=== PATIENT | male | born 1955 | race Caucasian/White ===

== ENCOUNTER → 2018-09-18 | Day surgery (SDC) | payer MEDICARE, OTHER ==
[2018-09-15 12:28] LABS: BASOPHILS # (AUTO) 0.1 (0.0-0.1); BASOPHILS % 0.8 % (0.0-1.0); EOSINOPHILS # (AUTO) 0.3 (0.0-0.4); EOSINOPHILS % 3.4 % (0.0-6.0); HEMATOCRIT 48.1 % (38.2-49.6); HEMOGLOBIN 15.9 g/dL (14.0-18.0); LYMPHOCYTES # (AUTO) 2.4 (1.0-3.2); LYMPHOCYTES % 26.2 % (18.0-39.1); MEAN CORPUSCULAR HEMOGLOBIN 31.5 pg (28-32); MEAN CORPUSCULAR HGB CONC 33.1 g/dL (31-35); MEAN CORPUSCULAR VOLUME 95.4 fL (81-99); MONOCYTES # (AUTO) 0.8 (0.2-0.8); MONOCYTES % 9.1 % (4.4-11.3); NEUTROPHILS # (AUTO) 5.5 (2.1-6.9); NEUTROPHILS % 60.3 % (38.7-80.0); PLATELET COUNT 139 x10e3/uL (140-360); RED BLOOD COUNT 5.04 x10e6/uL (4.3-5.7); RED CELL DISTRIBUTION WIDTH 13.7 % (11.7-14.4)
[2018-09-15 13:06] LABS: ANION GAP 14.1 mmol/L (8-16); BLOOD UREA NITROGEN 19 mg/dL (7-26); BUN/CREATININE RATIO 18 (6-25); CALCIUM 9.2 mg/dL (8.4-10.2); CARBON DIOXIDE 28 mmol/L (22-29); CHLORIDE 97 mmol/L (98-107); CREATININE, SERUM 1.04 mg/dL (0.72-1.25); EST GLOMERULAR FILTRATION RATE > 60 ML/MIN (60-); GLUCOSE 100 mg/dL (74-118); POTASSIUM 4.1 mmol/L (3.5-5.1); SODIUM 135 mmol/L (136-145)
--- NOTE | 2018-09-15 13:25 | Diagnostic Imaging Report ---
EXAMINATION: PA and lateral views of the chest. COMPARISON: None CLINICAL HISTORY: Preoperative exam for prostate procedure DISCUSSION: The lungs are well-inflated. No focal airspace consolidation, pleural effusion, or pneumothorax. Multiple median sternotomy wires and mediastinal surgical clips. Tortuous thoracic aorta with otherwise normal heart size. No overt pulmonary edema. No acute osseous abnormality. Surgical plate and screw construct along the distal right clavicle. IMPRESSION: No acute cardiopulmonary abnormalities. Signed by: Dr. Jayjay Gasca M.D. on 09/15/2018 1:22 PM
[~2018-09-18] MED LIST: ALFUZOSIN HCL10 MG PO; AMPICILLIN SOD IV ONE; BELLADONNA/OPIUM 30 MG SUPP RC ONE; CLONIDINE HCL0.1 MG PO; DEXAMETHASONE SOD PHOS INJ 4 MG/ML VIAL ONE; DILANTIN50 MG PO; FENTANYL CITRATE/PF 100MCG/2 ML INJ ONE; HYDROCHLOROTHIA25 MG PO; IBUPROFEN200 MG PO; IOPAMIDOL 610MG/1ML 300 MG/ML VIAL IV ONE; ISOSORBIDE MONO30 MG PO; KETOROLAC TROMETHAMINE 30 MG/ML VIAL ONE; MAGNESIUM OXID400 MG PO; ONDANSETRON HCL INJ 2MG/ML 2ML 2 MG/ML VIAL ONE; POTASSIUM CITR10 MEQ PO; PRIMIDONE250 MG PO; PROPOFOL IV EMULSION 10 MG/ML 20 ML VIAL ONE; SEVOFLURANE INHAL SOLN 250 ML PEN BTL ONE; SIMVASTATIN80 MG PO; SODIUM CHLORIDE 0.9% IV ONE; ZETIA10 MG PO
--- OUTSIDE RECORDS SUMMARY | 2018-09-18 09:10 | XMS REPORT | Summary of Care ---
Author Author [facility] Organization [facility] Address Unknown Phone Unavailable Encounter JOO Rankin(CARLITOS) [id number] Date(s): 05/07/17 - 05/07/17 [facility] [address] [place] [address]- Discharge Diagnosis: Acute head injury Discharge Diagnosis: Nondisplaced fracture of first metatarsal bone, right foot, initial encounter for closed fracture Discharge Disposition: Home or Self Care Attending Physician: Cesar Mcmanus DO Vital Signs Most recent to 1 2 oldest [Reference Range]: Height 182.88 cm (05/07/17 5:20 PM) Temperature Oral 98.2 DegF 98.2 DegF [96.4-99.1 DegF] (05/07/17 7:50 PM) (05/07/17 5:20 PM) Blood Pressure 126/75 mmHg 137/74 mmHg [90-140/60-90 mmHg] (05/07/17 7:50 PM) (05/07/17 5:20 PM) Respiratory Rate 16 BRMIN 16 BRMIN [14-20 BRMIN] (05/07/17 7:50 PM) (05/07/17 5:20 PM) Peripheral Pulse 65 bpm 67 bpm Rate [60-100 bpm] (05/07/17 7:50 PM) (05/07/17 5:20 PM) Weight 136.364 kg (05/07/17 5:20 PM) Body Mass Index 40.77 m2 (05/07/17 5:20 PM) Problem List Condition Effective Dates Status Health Status Informant CA - Cancer of Resolved prostate(Confirmed) Cellulitis(Confirmed Active ) Heart Resolved attack(Confirmed) HTN - Active Hypertension(Confirm ed) Hyperlipidemia(Confi Active rmed) Hypertension(Confirm Resolved ed) Pneumonia(Confirmed) Resolved Seizure Active disorder(Confirmed) Triple coronary Active bypass(Confirmed) Allergies, Adverse Reactions, Alerts Substance Reaction Severity Status Darvon Active Medications Tylenol with Codeine #3 oral tablet 2 tab, Route: PO, Drug Form: TAB, Dosing Weight 136.364, kg, ONCE, STAT, Start d ate: 05/07/17 17:33:00 CDT, Stop date: 05/07/17 17:33:00 CDT Notes: Do not exceed 4gm/day of acetaminophen. (Same as: Tylenol with Codeine # 3) Start Date: 05/07/17 Stop Date: 05/07/17 Status: Completed Tylenol with Codeine #3 oral tablet 1 - 2 tab, PO, Q4H, PRN Pain, X 3 day, # 15 tab, 0 Refill(s) Start Date: 05/07/17 Stop Date: 05/10/17 Status: Ordered Results No data available for this section Immunizations Given and Recorded Vaccine Date Status Refusal Reason influenza virus vaccine, inactivated 10/27/10 Given Procedures Procedure Date Related Diagnosis Body Site Assess radiation therapy care Bypass Social History Social History Type Response Smoking Status Never smoker; Exposure to Tobacco Smoke None; Cigarette Smoking Last 365 Days No; Reg Smoking Cessation Counseling No Assessment and Plan No data available for this section
--- OUTSIDE RECORDS SUMMARY | 2018-09-18 09:10 | XMS REPORT ---
[facility] Address Unknown Phone Unavailable Care Team Providers Care Principal Trainer Name Role Phone KAYLA DOW Unavailable Unavailable Problems This patient has no known problems. Allergies, Adverse Reactions, Alerts This patient has no known allergies or adverse reactions. Medications This patient has no known medications. Results Test Description Test Time Test Comments Text Results Atomic Results Result Comments CHEST 2 VIEWS 2018-09-15 13:20:00 [place] [address] Patient Name: LILLIAN DOMINGUEZ MR #: [id number] : 1955 Age/Sex: 63/M Req #: [id number] Adm Physician: Ordered by: KAYLA DOW MD Report #: [id number] Location: OR Room/Bed: Procedure: [id number] DX/CHEST 2 VIEWS Exam Date: 09/15/18 Exam Time: 1250 REPORT STATUS: Signed EXAMINATION: PA and lateral views of the chest. FINESSE RISON: None CLINICAL HISTORY: Preoperative exam for prostate procedure DISCUSSION: The lungs are well-inflated. No focal airspace consolidation, pleural effusion, or pneumothorax. Multiple median sternotomy wires and mediastinal surgical clips. Tortuous thoracic aorta with otherwise normal heart size. No overt pulmonary edema. No acute osseous abnormality. Surgical plate and screw construct along the distal right clavicle. IMPRESSION: No acute cardiopulmonary abnormalities. Signed by: Dr. Russ Soriano M.D. on 09/15/2018 1:22 PM Dictated By: RUSS SORIANO MD 21 Transcribed By: MARGOT on 09/15/181321 COPY TO: KAYLA DOW MD
--- OUTSIDE RECORDS SUMMARY | 2018-09-18 09:10 | XMS REPORT | CCD ---
Author Author Auto Generated Organization [facility] Address Unknown Phone Unavailable Care Team Providers Care Surface Hydrologist Name Role Phone PhiliptSu PP MacDonya monahan Jayne CP Allergies, Adverse Reactions, Alerts Substance Reaction Status Darvon Active Problem List Condition Effective Dates Status CA - Cancer of prostate Resolved Cellulitis Active Heart attack Resolved HTN - Hypertension Active Hyperlipidemia Active Hypertension Resolved Pneumonia Resolved Seizure disorder Active Triple coronary bypass Active Medications Medication Instructions Start Date End Date Status Saline Flush 0.9% 5 ml, Route: IVP, Drug Form: INJ, 12/25/2012 12/26/2012 Discontinued Dosing Weight 155.17, kg, Q12H, Start date: 12/25/12 21:00:00, Duration: 30 day, Stop date: 01/24/13 9:00:00 Saline Flush 0.9% 5 ml, Route: IVP, Drug Form: INJ, 12/25/2012 12/26/2012 Discontinued Dosing Weight 155.17, kg, PRN, PRN Line Flush, Start date: 12/25/12 14:58:00, Duration: 30 day, Stop date: 01/24/13 14:57:00 clopidogrel 300 mg, 1 tab, Route: PO, Drug 12/25/2012 12/25/2012 Completed form: TAB, ONCE, Dosing Weight 155.17, kg, Start date: 12/25/12 14:58:00, Stop date: 12/25/12 14:58:00 acetylcysteine oral 600 mg, 3 mL, Route: PO, Drug form: 12/25/2012 12/26/2012 Discontinued solution (mg) SOLN, Q12H, Dosing Weight 155.17, kg, Start date: 12/25/12 21:00:00, Duration: 4 doses or times, Stop date: 12/27/12 9:00:00 diphenhydrAMINE 50 mg, 1 cap, Route: PO, Drug form: 12/25/2012 12/25/2012 Completed CAP, ONCE, Dosing Weight 155.17, kg, Start date: 12/25/12 14:58:00, Stop date: 12/25/12 14:58:00 predniSONE 50 mg, 1 tab, Route: PO, Drug form: 12/25/2012 12/26/2012 Discontinued TAB, TID, Dosing Weight 155.17, kg, Start date: 12/25/12 17:00:00, Duration: 3 doses or times, Stop date: 12/26/12 13:00:00 Saline Flush 0.9% 5 ml, Route: IVP, Drug Form: INJ, 12/25/2012 12/26/2012 Discontinued Dosing Weight 145.455, kg, PRN, PRN Line Flush, Start date: 12/25/12 5:06:00, Duration: 30 day, Stop date: 01/24/13 5:05:00 Saline Flush 0.9% 5 ml, Route: IVP, Drug Form: INJ, 12/25/2012 12/26/2012 Discontinued Dosing Weight 145.455, kg, Q12H, Start date: 12/25/12 9:00:00, Duration: 30 day, Stop date: 01/23/13 21:00:00 aspirin 325 mg 325 mg, 1 tab, Route: PO, Drug 12/25/2012 12/25/2012 Completed tablet form: TAB, ONCE, Dosing Weight 145.455, kg, Start date: 12/25/12 5:06:00, Stop date: 12/25/12 5:06:00 lisinopril 5 mg, 1 tab, Route: PO, Drug form: 12/25/2012 12/26/2012 Discontinued TAB, Daily, Dosing Weight 145.455, kg, Start date: 12/25/12 9:00:00, Duration: 30 day, Stop date: 01/23/13 9:00:00 nitroglycerin SL Tab 0.4 mg, 1 tab, Route: SL, Drug 12/25/2012 12/25/2012 Discontinued form: TAB, Q5Min, Dosing Weight 145.455, kg, PRN Chest Pain, Start date: 12/25/12 5:06:00, Duration: 3 doses or times, Stop date: Limited # of times aspirin 325 mg, Route: PO, Drug form: TAB, 12/25/2012 12/25/2012 Completed ONCE, Dosing Weight 145.455, kg, Priority: STAT, Start date: 12/25/12 1:10:00, Stop date: 12/25/12 1:10:00 Pravachol 40 mg, 2 tab, Route: PO, Drug form: 12/25/2012 12/26/2012 Discontinued TAB, QPM, Dosing Weight 155.17, kg, Start date: 12/25/12 17:00:00, Duration: 30 day, Stop date: 01/23/13 17:00:00 Sodium Chloride 0.9% 1,000 mL, Rate: 75 ml/hr, Infuse 12/25/2012 12/25/2012 Completed IV 1,000 mL over: 13.3 hr, Route: IV, Dosing Weight 145.455 kg, Total Volume: 1,000, Priority: STAT, Start date: 12/25/12 1:09:00, Duration: 1 doses or times, Stop date: 12/25/12 14:26:00 nitroglycerin SL Tab 0.4 mg, 1 tab, Route: SL, Drug 12/25/2012 12/25/2012 Discontinued form: TAB, Q5Min, Dosing Weight 145.455, kg, Start date: 12/25/12 1:10:00, Duration: 30 day, Stop date: 01/24/13 1:05:00 acetaminophen-hydroc 1 tab, Route: PO, Drug Form: TAB, 12/25/2012 12/26/2012 Discontinued odone 325 mg-7.5 mg Q12H, PRN Pain, Start date: oral tablet 12/25/12 19:10:00, Duration: 30 day, Stop date: 01/24/13 19:09:00 Lovenox 40 mg, 0.4 mL, Route: SUB-Q, Drug 12/25/2012 12/25/2012 Discontinued form: INJ, [id number], Dosing Weight 155.17, kg, Start date: 12/25/12 15:00:00, Duration: 30 day, Stop date: 01/23/13 15:00:00 metoprolol extended 50 mg, 1 tab, Route: PO, Drug form: 12/26/2012 12/26/2012 Discontinued release ERTAB, Daily, Start date: 12/26/12 9:00:00, Duration: 30 day, Stop date: 01/24/13 9:00:00 influenza virus 0.5 mL, Route: IM, Drug Form: INJ, 10/27/2010 10/27/2010 Completed vaccine, inactivated Start date: 10/27/10 9:00:00, Stop date: 10/27/10 9:00:00 nitroglycerin 0.4 mg 0.4 mg, 1 tab, Route: SL, Drug 12/25/2012 12/26/2012 Discontinued sublingual tablet form: TAB, Q5Min, PRN Chest Pain, Start date: 12/25/12 4:56:00, Duration: 30 day, Stop date: 01/24/13 4:55:00 atropine 0.5 mg, 5 mL, Route: IVP, Drug 12/25/2012 12/26/2012 Discontinued form: INJ, PRN, PRN Bradycardia, Start date: 12/25/12 4:56:00, Duration: 30 day, Stop date: 01/24/13 4:55:00 clotrimazole topical 1 appl, Route: TOP, Q12H, Drug 12/25/2012 12/26/2012 Discontinued 1% cream form: CRM, Start date: 12/25/12 21:00:00, Duration: 30 day, Stop date: 01/24/13 9:00:00 phenobarbital 50 mg, 12.5 mL, Route: PO, Drug 12/26/2012 12/26/2012 Discontinued form: ELIX, Daily, Dosing Weight 155.17, kg, Start date: 12/26/12 9:00:00, Duration: 30 day, Stop date: 01/24/13 9:00:00 phenytoin 300 mg, 3 cap, Route: PO, Drug 12/25/2012 12/26/2012 Discontinued form: ERCAP, BID, Dosing Weight 155.17, kg, Start date: 12/25/12 21:00:00, Duration: 30 day, Stop date: 01/24/13 9:00:00 Diprolene AF 1 appl, Route: TOP, Q12H, Drug 12/25/2012 12/26/2012 Discontinued form: CRM, Start date: 12/25/12 21:00:00, Duration: 30 day, Stop date: 01/24/13 9:00:00 Immunizations Vaccine Date Status influenza virus vaccine, inactivated 10/27/2010 Auth (Verified) Vital Signs Most recent to oldest [Reference Range]: 1 2 3 Height 182.88 cm (12/25/2012 05:26:00) 182.88 cm (12/25/2012 00:06:00) Temperature Oral [96.4-99.1 DegF] 98.3 DegF (12/26/2012 08:00:00) 98.1 DegF (12/26/2012 04:00:00) 99.4 DegF *HI* (12/26/2012 00:00:00) Systolic Blood Pressure [90-140 mmHg] 128 mmHg (12/26/2012 08:00:00) 126 mmHg (12/26/2012 04:00:00) 131 mmHg (12/26/2012 00:00:00) Diastolic Blood Pressure [60-90 mmHg] 74 mmHg (12/26/2012 08:00:00) 84 mmHg (12/26/2012 04:00:00) 73 mmHg (12/26/2012 00:00:00) Respiratory Rate [14-20 BRMIN] 17 BRMIN (12/26/2012 08:00:00) 18 BRMIN (12/26/2012 04:00:00) 18 BRMIN (12/26/2012 00:00:00) Peripheral Pulse Rate [60-100 bpm] 67 bpm (12/26/2012 08:00:00) 66 bpm (12/26/2012 04:00:00) 68 bpm (12/26/2012 00:00:00) Weight 155.17 kg (12/25/2012 05:26:00) 145.455 kg (12/25/2012 00:06:00) Results URINALYSIS Most recent to oldest [Reference Range]: 1 2 3 UA Turbidity [Clear] Clear (12/25/2012 01:10:00) UA Color [Yellow] Yellow *NA* (12/25/2012 01:10:00) UA pH [5.0-8.0] 5.0 (12/25/2012 01:10:00) UA Spec Grav [<=1.030] 1.025 (12/25/2012 01:10:00) UA Glucose [Negative mg/dL] Negative mg/dL *NA* (12/25/2012 01:10:00) UA Blood [Negative] Negative (12/25/2012 01:10:00) UA Ketones [Negative mg/dL] Negative mg/dL *NA* (12/25/2012 01:10:00) UA Protein [Negative mg/dL] 30 mg/dL *ABN* (12/25/2012 01:10:00) UA Urobilinogen [0.1-1.0 mg/dL] <=1.0 mg/dL *NA* (12/25/2012 01:10:00) UA Bili [Negative] Negative *NA* (12/25/2012 01:10:00) UA Leuk Est [Negative] Negative (12/25/2012 01:10:00) UA Nitrite [Negative] Negative (12/25/2012 01:10:00) UA WBC [0-5 /HPF] 3 /HPF (12/25/2012 01:10:00) UA RBC [0-2 /HPF] 2 /HPF (12/25/2012 01:10:00) UA Sq Epi [Few /LPF] Occasional /LPF *NA* (12/25/2012 01:10:00) UA Hyal Cast [0-2 /LPF] 1 /LPF (12/25/2012 01:10:00) UA Mucus [None Seen /LPF] Many /LPF *ABN* (12/25/2012 01:10:00) CHEMISTRY Most recent to oldest [Reference Range]: 1 2 3 Sodium Lvl [135-145 mEq/L] 141 mEq/L (12/25/2012 15:20:00) 140 mEq/L (12/25/2012 01:40:00) Potassium Lvl [3.5-5.1 mEq/L] 4.0 mEq/L (12/25/2012 15:20:00) 3.6 mEq/L (12/25/2012 01:40:00) Chloride Lvl [95-109 mEq/L] 104 mEq/L (12/25/2012 15:20:00) 104 mEq/L (12/25/2012 01:40:00) CO2 [24-32 mEq/L] 29 mEq/L (12/25/2012:20:00) 31 mEq/L (12/25/2012:40:00) AGAP [10.0-20.0 mEq/L] 12.0 mEq/L (12/25/2012:20:00) 8.6 mEq/L *LOW* (12/25/2012:40:00) Creatinine Lvl [0.5-1.4 mg/dL] 1.1 mg/dL (12/25/2012:20:00) 1.0 mg/dL (12/25/2012:40:00) eGFR 73 mL/min/1.73m2 1 *NA* (12/25/2012:20:00) 82 mL/min/1.73m2 2 *NA* (12/25/201240:00) BUN [7-22 mg/dL] 17 mg/dL (12/25/2012:20:00) 19 mg/dL (12/25/201240:00) B/C Ratio [6-25] 19 (12/25/2012:40:00) Glucose Lvl [70-99 mg/dL] 99 mg/dL 3 (12/25/2012:20:00) 113 mg/dL 4 *HI* (12/25/201240:00) Total Protein [6.4-8.4 g/dL] 7.3 g/dL (12/25/2012:40:00) Albumin Lvl [3.5-5.0 g/dL] 3.4 g/dL *LOW* (12/25/201240:00) Globulin [2.0-4.0 g/dL] 3.9 g/dL (12/25/2012:40:00) A/G Ratio [0.7-1.6] 0.9 (12/25/2012:40:00) Calcium Lvl [8.5-10.5 mg/dL] 8.5 mg/dL (12/25/2012:20:00) 8.7 mg/dL (12/25/2012:40:00) ALT [0-65 unit/L] 43 unit/L (12/25/2012:40:00) AST [0-37 unit/L] 15 unit/L (12/25/2012:40:00) Alk Phos [39-136 unit/L] 81 unit/L (12/25/2012:40:00) Bili Total [0.2-1.3 mg/dL] 0.3 mg/dL (12/25/2012:40:00) Total CK [12-191 unit/L] 79 unit/L (12/25/2012 13:03:00) 81 unit/L (12/25/2012 07:00:00) 86 unit/L (12/25/2012:40:00) CK MB [0.5-3.6 ng/mL] 1.2 ng/mL (12/25/2012 13:03:00) 1.5 ng/mL (12/25/2012 07:00:00) 1.4 ng/mL (12/25/2012:40:00) CK MB Index [0.0-2.5] 1.5 (12/25/2012:03:00) 1.9 (12/25/2012 07:00:00) 1.6 (12/25/2012:40:00) Troponin-I [0.00-0.40 ng/mL] <0.02 ng/mL (12/25/2012:03:00) <0.02 ng/mL (12/25/2012 07:00:00) <0.02 ng/mL (12/25/2012:40:00) BNP [<=100 pg/mL] 22 pg/mL 5 (12/25/2012:40:00) CHD Risk [4.00-7.30] 4.51 (12/25/2012:20:00) Chol [120-200 mg/dL] 167 mg/dL (12/25/2012:20:00) Trig [0-200 mg/dL] 324 mg/dL *HI* (12/25/2012:20:00) HDL [>=35 mg/dL] 37 mg/dL (12/25/2012:20:00) LDL [0-129 mg/dL] 65 mg/dL (12/25/2012:20:00) U Amph Scr [Negative] Negative *NA* (12/25/2012 01:10:00) U Caitlyn Scr [Negative] Positive *ABN* (12/25/2012:10:00) U Benzodia Scr [Negative] Negative *NA* (12/25/2012 01:10:00) U Cocaine Scr [Negative] Negative *NA* (12/25/2012:10:00) U Opiate Scr [Negative] Negative *NA* (12/25/2012:10:00) U Phencyc Scr [Negative] Negative *NA* (12/25/2012:10:00) U Cannab Scr [Negative] Negative *NA* (12/25/2012:10:00) UDS Note See Note 6 (12/25/2012:10:00) Phenytoin Total [10.0-20.0 ug/ml] 5.9 ug/ml *LOW* (12/25/2012 01:40:00) Etoh (%) <.003 % 7 *NA* (12/25/2012 03:28:00) Ethanol Lvl <3 mg/dL 8 *NA* (12/25/2012 03:28:00) 1Result Comment: The eGFR is calculated using the CKD-EPI formula. In most young, healthy individuals the eGFR will be >90 mL/min/1.73m2. The eGFR declines with age. An eGFR of 60-89 may be normal in some populations, particularly the elderly, for whom the CKD-EPI formula has not been extensively validated. Use of the eGFR is not recommended in the following populations: Individuals with unstable creatinine concentrations, including patients and those with serious co-morbid conditions. Patients with extremes in muscle mass or diet. The data above are obtained from the National Kid[employer] Disease Education Program ( NKDEP) which additionally recommends that when the eGFR is used in patients with extremes of body mass index for purposes of drug dosing, the eGFR should be mul tiplied by the estimated BMI. 2Result Comment: The eGFR is calculated using the CKD-EPI formula. In most young, healthy individuals the eGFR will be >90 mL/min/1.73m2. The eGFR declines with age. An eGFR of 60-89 may be normal in some populations, particularly the elderly, for whom the CKD-EPI formula has not been extensively validated. Use of the eGFR is not recommended in the following populations: Individuals with unstable creatinine concentrations, including patients and those with serious co-morbid conditions. Patients with extremes in muscle mass or diet. The data above are obtained from the National Kidney Disease Education Program ( NKDEP) which additionally recommends that when the eGFR is used in patients with extremes of body mass index for purposes of drug dosing, the eGFR should be mul tiplied by the estimated BMI. 3Interpretive Data: Adult reference range values reflect the clinical guidelines of the [place] [employer]. 4Interpretive Data: Adult reference range values reflect the clinical guidelines of the [place] [employer]. 5Interpretive Data: Elevated results are in line with increasing severity of congestive heart failure. Minor elevations between 100 and 300 may be seen with Myocardial Ischemia, Sodium retaining drugs, and compensated/treated heart failure. 6Interpretive Data: Drugs reported as positive have not been confirmed by a second method and should be used for medical purposes only. To order confirmation, contact laboratory. note: Below are cut-off concentrations for all urine drugs of abuse performed in the laboratory. Some drugs listed in the table may not be included in this panel. Description Cut-off concentration Amphetamine 1000 ng/mL Barbiturates 200 ng/mL Benzodiazepines 300 ng/mL Cocaine metabolites 300 ng/mL Opiates 300 ng/mL Phencyclidine 25 ng/mL Propoxyphene 300 ng/mL Marijuana metabolites 50 ng/mL Methadone 300 ng/mL Urine alcohol 20 mg/dL 7Interpretive Data: Negative Range: <0.003% Toxic Range: >0.25% 8Interpretive Data: Negative Range: <3 mg/dL Toxic Range: >250 mg/dL HEMATOLOGY Most recent to oldest [Reference Range]: 1 2 3 WBC [3.7-10.4 K/CMM] 10.2 K/CMM (12/25/2012 15:20:00) 9.4 K/CMM (12/25/2012 07:00:00) 10.6 K/CMM *HI* (12/25/2012 01:40:00) RBC [4.70-6.10 M/CMM] 4.89 M/CMM (12/25/2012 15:20:00) 4.76 M/CMM (12/25/2012 07:00:00) 4.76 M/CMM (12/25/2012:40:00) Hgb [14.0-18.0 g/dL] 15.6 g/dL (12/25/2012 15:20:00) 15.4 g/dL (12/25/2012 07:00:00) 15.3 g/dL (12/25/2012 01:40:00) Hct [42.0-54.0 %] 47.6 % (12/25/2012 15:20:00) 46.7 % (12/25/2012 07:00:00) 46.2 % (12/25/2012:40:00) MCV [80.0-94.0 fL] 97.5 fL *HI* (12/25/2012 15:20:00) 98.0 fL *HI* (12/25/2012 07:00:00) 96.9 fL *HI* (12/25/2012:40:00) MCH [27.0-31.0 pg] 32.0 pg *HI* (12/25/2012:20:00) 32.3 pg *HI* (12/25/2012 07:00:00) 32.1 pg *HI* (12/25/2012 01:40:00) MCHC [32.0-36.0 g/dL] 32.8 g/dL (12/25/2012:20:00) 33.0 g/dL (12/25/2012 07:00:00) 33.1 g/dL (12/25/2012 01:40:00) RDW [11.5-14.5 %] 14.6 % *HI* (12/25/2012:20:00) 14.2 % (12/25/2012 07:00:00) 14.4 % (12/25/2012 01:40:00) Platelet [133-450 K/CMM] 137 K/CMM (12/25/2012 15:20:00) 121 K/CMM *LOW* (12/25/2012 07:00:00) 135 K/CMM (12/25/2012 01:40:00) MPV [7.4-10.4 fL] 9.1 fL (12/25/2012 15:20:00) 9.2 fL (12/25/2012 07:00:00) 9.6 fL (12/25/2012 01:40:00) Segs [45.0-75.0 %] 64.2 % (12/25/2012 15:20:00) 60.9 % (12/25/2012 07:00:00) 65.7 % (12/25/2012 01:40:00) Lymphocytes [20.0-40.0 %] 19.9 % *LOW* (12/25/2012 15:20:00) 25.3 % (12/25/2012 07:00:00) 21.7 % (12/25/2012 01:40:00) Monocytes [2.0-12.0 %] 8.8 % (12/25/2012 15:20:00) 7.9 % (12/25/2012 07:00:00) 8.1 % (12/25/2012 01:40:00) Eosinophils [0.0-4.0 %] 5.7 % *HI* (12/25/2012 15:20:00) 5.2 % *HI* (12/25/2012 07:00:00) 4.2 % *HI* (12/25/2012 01:40:00) Basophils [0.0-1.0 %] 1.4 % *HI* (12/25/2012 15:20:00) 0.7 % (12/25/2012 07:00:00) 0.3 % (12/25/2012 01:40:00) Segs-Bands # [1.5-8.1 K/CMM] 6.6 K/CMM (12/25/2012 15:20:00) 5.7 K/CMM (12/25/2012 07:00:00) 7.0 K/CMM (12/25/2012 01:40:00) Lymphocytes # [1.0-5.5 K/CMM] 2.0 K/CMM (12/25/2012 15:20:00) 2.4 K/CMM (12/25/2012 07:00:00) 2.3 K/CMM (12/25/2012 01:40:00) Monocytes # [0.0-0.8 K/CMM] 0.9 K/CMM *HI* (12/25/2012 15:20:00) 0.7 K/CMM (12/25/2012 07:00:00) 0.9 K/CMM *HI* (12/25/2012 01:40:00) Eosinophils # [0.0-0.5 K/CMM] 0.6 K/CMM *HI* (12/25/2012 15:20:00) 0.5 K/CMM (12/25/2012 07:00:00) 0.4 K/CMM (12/25/2012 01:40:00) Basophils # [0.0-0.2 K/CMM] 0.1 K/CMM (12/25/2012 15:20:00) 0.1 K/CMM (12/25/2012 07:00:00) 0.0 K/CMM (12/25/2012 01:40:00) PT [12.0-14.7 seconds] 12.4 seconds (12/25/2012 15:20:00) 12.7 seconds (12/25/2012 01:40:00) INR [0.85-1.17] 0.90 9 (12/25/2012 15:20:00) 0.93 10 (12/25/2012 01:40:00) PTT [22.9-35.8 seconds] 26.8 seconds 11 (12/25/2012 15:20:00) 26.8 seconds 12 (12/25/2012 01:40:00) 9Interpretive Data: RECOMMENDED RANGES FOR PROTIME INR: 2.0-3.0 for most medical and surgical thromboembolic states. 2.5-3.5 for artificial heart valves and recurrent embolism. INR SHOULD BE USED ONLY FOR PATIENTS ON STABLE ANTICOAGULANT THERAPY. 10Interpretive Data: RECOMMENDED RANGES FOR PROTIME INR: 2.0-3.0 for most medical and surgical thromboembolic states. 2.5-3.5 for artificial heart valves and recurrent embolism. INR SHOULD BE USED ONLY FOR PATIENTS ON STABLE ANTICOAGULANT THERAPY. 11Interpretive Data: Heparin Therapeutic Range: 57 - 92 Seconds 12Interpretive Data: Heparin Therapeutic Range: 57 - 92 Seconds Procedures Procedures Date Related Diagnosis Assess radiation therapy care Bypass
--- OUTSIDE RECORDS SUMMARY | 2018-09-18 09:10 | XMS REPORT | Continuity of Care Document ---
Author Author [facility] Interface Address Unknown Phone Unavailable Problems Problem Status Onset Date Classification Date Reported Comments Source UNSTABLE ANGINA, HYPOKALEMIA Active 04/05/2018 [facility] SOB Active 04/05/2018 [facility] Discharge Diagnosis: Acute head injury 05/07/2017 05/10/2017 [facility] Discharge Diagnosis: Nondisplaced fracture of first metatarsal bone, right foot, initial encounter for closed fracture 05/07/2017 05/10/2017 [facility] FALL Active 05/07/2017 [facility] CHEST PAIN Active 12/24/2012 [facility] CA - Cancer of prostate Resolved Problem 05/10/2017 [facility] Cellulitis Active Problem 05/10/2017 [facility] Heart attack Resolved Problem 05/10/2017 [facility] HTN - Hypertension Active Problem 05/10/2017 [facility] Hyperlipidemia Active Problem 05/10/2017 [facility] Hypertension Resolved Problem 05/10/2017 [facility] Pneumonia Resolved Problem 05/10/2017 [facility] Seizure disorder Active Problem 05/10/2017 [facility] Triple coronary bypass Active Problem 05/10/2017 [facility] CA - Cancer of prostate Resolved Problem 12/28/2012 [facility] Cellulitis Active Problem 12/28/2012 [facility] Heart attack Resolved Problem 12/28/2012 [facility] HTN - Hypertension Active Problem 12/28/2012 [facility] Hyperlipidemia Active Problem 12/28/2012 [facility] Hypertension Resolved Problem 12/28/2012 [facility] Pneumonia Resolved Problem 12/28/2012 [facility] Seizure disorder Active Problem 12/28/2012 [facility] Triple coronary bypass Active Problem 12/28/2012 [facility] CHEST PAIN NOS Active [facility] UNSTABLE ANGINA Active [facility] HYPOKALEMIA Active [facility] Medications Medication Details Route Status Patient Instructions Ordering Provider Order Date Source Acetaminophen 300 MG / Codeine Phosphate 30 MG Oral Tablet [Tylenol with Codeine #3] 1 - 2 tab, PO, Q4H, PRN Pain, X 3 day, # 15 tab, 0 Refill(s) Active 05/08/2017 [facility] Acetaminophen 300 MG / Codeine Phosphate 30 MG Oral Tablet [Tylenol with Codeine #3] 2 tab, Route: PO, Drug Form: TAB, Dosing Weight 136.364, kg, ONCE, STAT, Start date: 05/07/17 17:33:00 CDT, Stop date: 05/07/17 17:33:00 CDTNotes: Do not exceed 4gm/day of acetaminophen. (Same as: Tylenol with Codeine # 3) Inactive 05/07/2017 [facility] metoprolol extended release 50 mg, 1 tab, Route: PO, Drug form: ERTAB, Daily, Start date: 12/26/12 9:00:00, Duration: 30 day, Stop date: 01/24/13 9:00:00 PO No Longer Active [place] 12/26/2012 [facility] phenobarbital 50 mg, 12.5 mL, Route: PO, Drug form: ELIX, Daily, Dosing Weight 155.17, kg, Start date: 12/26/12 9:00:00, Duration: 30 day, Stop date: 01/24/13 9:00:00 PO No Longer Active [facility] 12/26/2012 [facility] Saline Flush 0.9% 5 ml, Route: IVP, Drug Form: INJ, Dosing Weight 155.17, kg, Q12H, Start date: 12/25/12 21:00:00, Duration: 30 day, Stop date: 01/24/13 9:00:00 IVP No Longer Active [facility] 12/26/2012 [facility] acetylcysteine oral solution (mg) 600 mg, 3 mL, Route: PO, Drug form: SOLN, Q12H, Dosing Weight 155.17, kg, Start date: 12/25/12 21:00:00, Duration: 4 doses or times, Stop date: 12/27/12 9:00:00 PO No Longer Active [place] 12/26/2012 [facility] clotrimazole topical 1% cream 1 appl, Route: TOP, Q12H, Drug form: CRM, Start date: 12/25/12 21:00:00, Duration: 30 day, Stop date: 01/24/13 9:00:00 TOP No Longer Active [place] 12/26/2012 [facility] phenytoin 300 mg, 3 cap, Route: PO, Drug form: ERCAP, BID, Dosing Weight 155.17, kg, Start date: 12/25/12 21:00:00, Duration: 30 day, Stop date: 01/24/13 9:00:00 PO No Longer Active [place] 12/26/2012 [facility] Diprolene AF 1 appl, Route: TOP, Q12H, Drug form: CRM, Start date: 12/25/12 21:00:00, Duration: 30 day, Stop date: 01/24/13 9:00:00 TOP No Longer Active [place] 12/26/2012 [facility] acetaminophen-hydrocodone 325 mg-7.5 mg oral tablet 1 tab, Route: PO, Drug Form: TAB, Q12H, PRN Pain, Start date: 12/25/12 19:10:00, Duration: 30 day, Stop date: 01/24/13 19:09:00 PO No Longer Active Mac 12/26/2012 [facility] predniSONE 50 mg, 1 tab, Route: PO, Drug form: TAB, TID, Dosing Weight 155.17, kg, Start date: 12/25/12 17:00:00, Duration: 3 doses or times, Stop date: 12/26/12 13:00:00 PO No Longer Active Mac 12/25/2012 [facility] Pravachol 40 mg, 2 tab, Route: PO, Drug form: TAB, QPM, Dosing Weight 155.17, kg, Start date: 12/25/12 17:00:00, Duration: 30 day, Stop date: 01/23/13 17:00:00 PO No Longer Active [place] 12/25/2012 [facility] Lovenox 40 mg, 0.4 mL, Route: SUB-Q, Drug form: INJ, [id number], Dosing Weight 155.17, kg, Start date: 12/25/12 15:00:00, Duration: 30 day, Stop date: 01/23/13 15:00:00 SUB-Q No Longer Active Mac 12/25/2012 [facility] Saline Flush 0.9% 5 ml, Route: IVP, Drug Form: INJ, Dosing Weight 155.17, kg, PRN, PRN Line Flush, Start date: 12/25/12 14:58:00, Duration: 30 day, Stop date: 01/24/13 14:57:00 IVP No Longer Active Mac 12/25/2012 [facility] clopidogrel 300 mg, 1 tab, Route: PO, Drug form: TAB, ONCE, Dosing Weight 155.17, kg, Start date: 12/25/12 14:58:00, Stop date: 12/25/12 14:58:00 PO No Longer Active [place] 12/25/2012 [facility] diphenhydrAMINE 50 mg, 1 cap, Route: PO, Drug form: CAP, ONCE, Dosing Weight 155.17, kg, Start date: 12/25/12 14:58:00, Stop date: 12/25/12 14:58:00 PO No Longer Active [place] 12/25/2012 [facility] Saline Flush 0.9% 5 ml, Route: IVP, Drug Form: INJ, Dosing Weight 145.455, kg, Q12H, Start date: 12/25/12 9:00:00, Duration: 30 day, Stop date: 01/23/13 21:00:00 IVP No Longer Active Mac 12/25/2012 [facility] lisinopril 5 mg, 1 tab, Route: PO, Drug form: TAB, Daily, Dosing Weight 145.455, kg, Start date: 12/25/12 9:00:00, Duration: 30 day, Stop date: 01/23/13 9:00:00 PO No Longer Active Mac 12/25/2012 [facility] Saline Flush 0.9% 5 ml, Route: IVP, Drug Form: INJ, Dosing Weight 145.455, kg, PRN, PRN Line Flush, Start date: 12/25/12 5:06:00, Duration: 30 day, Stop date: 01/24/13 5:05:00 IVP No Longer Active [place] 12/25/2012 [facility] aspirin 325 mg tablet 325 mg, 1 tab, Route: PO, Drug form: TAB, ONCE, Dosing Weight 145.455, kg, Start date: 12/25/12 5:06:00, Stop date: 12/25/12 5:06:00 PO No Longer Active Mac 12/25/2012 [facility] nitroglycerin SL Tab 0.4 mg, 1 tab, Route: SL, Drug form: TAB, Q5Min, Dosing Weight 145.455, kg, PRN Chest Pain, Start date: 12/25/12 5:06:00, Duration: 3 doses or times, Stop date: Limited # of times SL No Longer Active Mac 12/25/2012 [facility] nitroglycerin 0.4 mg sublingual tablet 0.4 mg, 1 tab, Route: SL, Drug form: TAB, Q5Min, PRN Chest Pain, Start date: 12/25/12 4:56:00, Duration: 30 day, Stop date: 01/24/13 4:55:00 SL No Longer Active Mac 12/25/2012 [facility] atropine 0.5 mg, 5 mL, Route: IVP, Drug form: INJ, PRN, PRN Bradycardia, Start date: 12/25/12 4:56:00, Duration: 30 day, Stop date: 01/24/13 4:55:00 IVP No Longer Active Mac 12/25/2012 [facility] aspirin 325 mg, Route: PO, Drug form: TAB, ONCE, Dosing Weight 145.455, kg, Priority: STAT, Start date: 12/25/12 1:10:00, Stop date: 12/25/12 1:10:00 PO No Longer Active [place] 12/25/2012 [facility] nitroglycerin SL Tab 0.4 mg, 1 tab, Route: SL, Drug form: TAB, Q5Min, Dosing Weight 145.455, kg, Start date: 12/25/12 1:10:00, Duration: 30 day, Stop date: 01/24/13 1:05:00 SL No Longer Active [place] 12/25/2012 [facility] Sodium Chloride 0.9% IV 1,000 mL 1,000 mL, Rate: 75 ml/hr, Infuse over: 13.3 hr, Route: IV, Dosing Weight 145.455 kg, Total Volume: 1,000, Priority: STAT, Start date: 12/25/12 1:09:00, Duration: 1 doses or times, Stop date: 12/25/12 14:26:00 IV No Longer Active [place] 12/25/2012 [facility] influenza virus vaccine, inactivated 0.5 mL, Route: IM, Drug Form: INJ, Start date: 03/26/11 9:00:00, Stop date: 10/27/10 9:00:00 IM No Longer Active SYSTEM 10/27/2010 [facility] Allergies, Adverse Reactions, Alerts Substance Category Reaction Severity Reaction type Status Date Reported Comments Source [place] drug allergy Allergy Active [facility] Immunizations Immunization Date Given Site Status Last Updated Comments Source influenza virus vaccine, inactivated 10/27/2010 Left deltoid completed [facility] influenza virus vaccine, inactivated 10/27/2010 completed [facility] Results Order Name Results Value Reference Range Date Interpretation Comments Source Cardiac SPECT multi studies NM Cardiac SPECT multi studies NM Nuclear gated myocardial perfusion scan performed as per protocol at nuclear medicine lab at [facility]. Lexiscan injected 0.4 mg intravenously stress agent. Cardiolite injected the 29.2 mCi for resting protocol 11.9 mCi for stress protocol. Impression: Left ventricular ejection fraction 50% no evidence of ischemia noted. Mild anterior wall scar noted. Mild anterior wall scar no ischemia. Patient known patient coronary artery bypass surgery done in the past. 04/05/2018 - - Read by: Donya Watts MD Dictated Date/time: 04/06/18 13:01 Electronically Signed by: Donya Watts MD 04/06/18 13:05 FINAL REPORT [facility] Chest 1view DX Chest 1view DX Portable chest: Median sternotomy wires are noted. The cardiac silhouette and pulmonary vasculature are within normal limits. The lungs and pleural spaces are clear. There are no acute osseous abnormalities. A right clavicular sideplate and screws is noted. There is no significant change compared to 12/25/2012. IMPRESSION: No acute radiographic abnormalities of the chest. [id number] 04/05/2018 - - Read by: Jayjay Bonilla MD Dictated Date/time: 04/05/18 08:19 Electronically Signed by: Jayjay Bonilla MD 04/05/18 08:20 FINAL REPORT [facility] Brain wo contrast CT Brain wo contrast CT Images and report reviewed, concur. Brain wo contrast CT 05/07/2017 5:23 PM CDT Ordering Physician: Ez Eric CLINICAL HISTORY: dlp: 1104.57; LR - fall, head injury; COMPARISON: CT head April 2009 TECHNIQUE: Axial images were obtained from the foramen magnum to the vertex without the use of intravenous contrast on a multidetector CT. Coronal and sagittal reformations were created. FINDINGS: INTRACRANIAL VAULT: No acute intracranial hemorrhage or secondary signs of increased intracranial pressure are present. No large territorial ischemic infarction is present. Old small lacunar infarction is noted in the right caudate head. Ventricles, cisterns, and sulci are normal. No intracranial mass or midline shift is present. Intracranial atherosclerotic calcific disease is present. ORBITS, MASTOIDS AND PARANASAL SINUSES: Visualized orbits are normal. Sinuses and air cells are clear. CALVARIUM: Calvarium is intact. IMPRESSION: No acute abnormality of the brain. Old small lacunar infarction in the right caudate head. SL: MAYCOL 05/07/2017 - - Read by: Alejandrina Ta MD Dictated Date/time: 05/07/17 19:46 Electronically Signed by: Alejandrina Ta MD 05/07/17 19:49 FINAL REPORT - - Read by: Sharmaine Spann MD Dictated Date/time: 05/07/17 19:32 Electronically Signed by: Sharmaine Spann MD 05/07/17 19:36 FINAL REPORT [facility] Spine cervical wo contrast CT Spine cervical wo contrast CT Spine cervical wo contrast CT CLINICAL HX: dlp: 1012.70; LR - fall, head injury neck pain; COMPARISON: none TECHNIQUE: Contiguous transaxial 2.5 mm images were obtained through the cervical spine. Images were reformatted in sagittal and coronal projections. FINDINGS: BONES: There is no evidence for fracture or subluxation. The alignment on the sagittal and coronal reformations is within normal limits. There is mild to moderate multilevel spondylosis, facet arthrosis and degenerative disc disease noted in the cervical spine. Mild foraminal stenosis is present at various levels. No significant central canal narrowing is noted. NECK SOFT TISSUES: The prevertebral soft tissues are within normal limits. Airway and lung apices: Visualized portion of the lung apices and airway are clear. IMPRESSION: No significant acute abnormality is noted on the cervical spine CT. SL: MORGAN 05/07/2017 - - Read by: Mack Pepper MD Dictated Date/time: 05/07/17 19:24 Electronically Signed by: Mack Pepper MD 05/07/17 19:28 FINAL REPORT [facility] Hand 3 views Bilateral DX Hand 3 views Bilateral DX EXAM: XR BILATERAL HANDS, 3 VIEWS DATE: 05/07/2017 5:22 PM CDT INDICATION: Pain Post Trauma. COMPARISON: None Available. TECHNIQUE: Frontal, oblique, and lateral views of the bilateral hands were obtained. FINDINGS: The bones are diffusely osteopenic. No acute fracture or malalignment is identified. Degenerative changes of the interphalangeal joints are noted bilaterally. In addition, moderate degenerative changes of the first carpometacarpal joint on the left are visualized. Punctate radiopaque densities are noted adjacent to the left 2nd distal interphalangeal joint as well as adjacent to the distal left ulna. IMPRESSION: No acute bony abnormality of the hands. SL: [id number] 05/07/2017 - - Read by: Jose Antonio Madera MD Dictated Date/time: 05/07/17 19:04 Electronically Signed by: Jose Antonio Madera MD 05/07/17 19:06 FINAL REPORT [facility] Elbow 3 views DX Elbow 3 views DX EXAM: XR LEFT ELBOW, 3 VIEWS DATE: 05/07/2017 5:22 PM CDT INDICATION: Left elbow pain. COMPARISON: None Available. TECHNIQUE: AP, oblique, and lateral views of the left elbow were obtained. FINDINGS: No fracture or malalignment is present. The soft tissues are within normal limits. No radiopaque foreign bodies are identified. IMPRESSION: No acute bony abnormality of the left elbow. SL: [id number] 05/07/2017 - - Read by: Jose Antonio Madera MD Dictated Date/time: 05/07/17 19:06 Electronically Signed by: Jose Antonio Madera MD 05/07/17 19:07 FINAL REPORT [facility] Knee 3 Views Bilateral DX Knee 3 Views Bilateral DX Knee 3 Views Bilateral DX CLINICAL HISTORY: - r/o fx FINDINGS/IMPRESSION: 3 views of the right knee and 3 views of the left knee are submitted for review. There is no evidence for fracture or subluxation. No joint effusion is noted. No significant soft tissue abnormality is noted. Moderate tricompartmental degenerative changes present at both knees. The visualized bones demonstrate mild generalized osteopenia.. SL: [id number] 05/07/2017 - - Read by: Mack Pepper MD Dictated Date/time: 05/07/17 18:55 Electronically Signed by: Mack Pepper MD 05/07/17 18:56 FINAL REPORT [facility] Ankle 3 views DX Ankle 3 views DX Ankle 3 views DX CLINICAL HISTORY: - r/o fx FINDINGS/IMPRESSION: 3 views of the right ankle are submitted for review. There is no evidence for fracture or subluxation. Probable accessory ossicle along the inferior margin of the lateral malleolus. Mild soft tissue swelling is present at the ankle bilaterally. No radiopaque foreign body is visualized. Joint spaces are well maintained without any significant degenerative change. The visualized bones demonstrate normal radiodensity. SL: [id number] 05/07/2017 - - Read by: Mack Pepper MD Dictated Date/time: 05/07/17 18:53 Electronically Signed by: Mack Pepper MD 05/07/17 18:54 FINAL REPORT [facility] Foot series DX Foot series DX EXAM: XR RIGHT FOOT, 3 VIEWS DATE: 05/07/2017 5:22 PM CDT INDICATION: Right foot pain. COMPARISON: None Available. TECHNIQUE: Frontal, oblique, and lateral views of the right foot were obtained. FINDINGS: There is an obliquely oriented fracture of the 1st proximal phalanx with extension into the metatarsophalangeal joint. Degenerative changes of the midfoot and tibiotalar joint are visualized. Enthesopathy changes of the calcaneus are present. Overlying soft tissue swelling is identified. IMPRESSION: Obliquely oriented, nondisplaced fracture of the 1st proximal phalanx with extension into the metatarsophalangeal joint. SL: [id number] 05/07/2017 - - Read by: Jose Antonio Madera MD Dictated Date/time: 05/07/17 19:03 Electronically Signed by: Jose Antonio Madera MD 05/07/17 19:04 FINAL REPORT [facility] CHEMISTRY AGAP 12.0 meq/L 10.0 - 20.0 12/25/2012 Normal [facility] CHEMISTRY Chloride Lvl 104 meq/L 95 - 109 12/25/2012 Normal [facility] CHEMISTRY Sodium Lvl 141 meq/L 135 - 145 12/25/2012 Normal [facility] CHEMISTRY Potassium Lvl 4.0 meq/L 3.5 - 5.1 12/25/2012 Normal [facility] CHEMISTRY eGFR 73 mL/min/1.73m2 12/25/2012 NA 1Result Comment: The eGFR is calculated using [...] from the National Kidney Disease Education Program (NKDEP) which additionally recommends that when the eGFR is used in patients with extremes of body mass index for purposes of drug dosing, the eGFR should be multiplied by the estimated BMI. [facility] CHEMISTRY CO2 29 meq/L 24 - 32 12/25/2012 Normal [facility] CHEMISTRY Calcium Lvl 8.5 mg/dL 8.5 - 10.5 12/25/2012 Normal [facility] CHEMISTRY Creatinine Lvl 1.1 mg/dL 0.5 - 1.4 12/25/2012 Normal [facility] CHEMISTRY Glucose Lvl 99 mg/dL 70 - 99 12/25/2012 Normal 3Interpretive Data: Adult reference range values reflect the clinical guidelines of the [place] [employer]. [facility] CHEMISTRY BUN 17 mg/dL 7 - 22 12/25/2012 Normal [facility] CHEMISTRY LDL 65 mg/dL 0 - 129 12/25/2012 Normal [facility] CHEMISTRY Trig 324 mg/dL 0 - 200 12/25/2012 [facility] CHEMISTRY HDL 37 mg/dL >=35 12/25/2012 Normal [facility] CHEMISTRY Chol 167 mg/dL 120 - 200 12/25/2012 Normal [facility] CHEMISTRY CHD Risk 4.51 4.00 - 7.30 12/25/2012 Normal [facility] HEMATOLOGY Eosinophils 5.7 % 0.0 - 4.0 12/25/2012 [facility] HEMATOLOGY Monocytes 8.8 % 2.0 - 12.0 12/25/2012 Normal [facility] HEMATOLOGY Lymphocytes 19.9 % 20.0 - 40.0 12/25/2012 LOW [facility] HEMATOLOGY Segs 64.2 % 45.0 - 75.0 12/25/2012 Normal [facility] HEMATOLOGY Lymphocytes # 2.0 K/CMM 1.0 - 5.5 12/25/2012 Normal [facility] HEMATOLOGY Monocytes # 0.9 K/CMM 0.0 - 0.8 12/25/2012 [facility] HEMATOLOGY Segs-Bands # 6.6 K/CMM 1.5 - 8.1 12/25/2012 Normal [facility] HEMATOLOGY Basophils 1.4 % 0.0 - 1.0 12/25/2012 [facility] HEMATOLOGY Basophils # 0.1 K/CMM 0.0 - 0.2 12/25/2012 Normal [facility] HEMATOLOGY Eosinophils # 0.6 K/CMM 0.0 - 0.5 12/25/2012 [facility] HEMATOLOGY MPV 9.1 fL 7.4 - 10.4 12/25/2012 Normal [facility] HEMATOLOGY Platelet 137 K/CMM 133 - 450 12/25/2012 Normal [facility] HEMATOLOGY MCH 32.0 pg 27.0 - 31.0 12/25/2012 [facility] HEMATOLOGY RDW 14.6 % 11.5 - 14.5 12/25/2012 [facility] HEMATOLOGY MCHC 32.8 g/dL 32.0 - 36.0 12/25/2012 Normal [facility] HEMATOLOGY WBC 10.2 K/CMM 3.7 - 10.4 12/25/2012 Normal [facility] Hgb 15.6 g/dL 14.0 - 18.0 12/25/2012 Normal [facility] RBC 4.89 M/CMM 4.70 - 6.10 12/25/2012 Normal [facility] HEMATOLOGY MCV 97.5 fL 80.0 - 94.0 12/25/2012 [facility] HEMATOLOGY Hct 47.6 % 42.0 - 54.0 12/25/2012 Normal [facility] HEMATOLOGY PT 12.4 s 12.0 - 14.7 12/25/2012 Normal [facility] PTT 26.8 s 22.9 - 35.8 12/25/2012 Normal 11Interpretive Data: Heparin Therapeutic Range: 57 - 92 Seconds [facility] HEMATOLOGY INR 0.90 0.85 - 1.17 12/25/2012 Normal 9Interpretive Data: RECOMMENDED RANGES FOR PROTIME INR: 2.0-3.0 for most medical and surgical thromboembolic states. 2.5-3.5 for artificial heart valves and recurrent embolism. INR SHOULD BE USED ONLY FOR PATIENTS ON STABLE ANTICOAGULANT THERAPY. [facility] CHEMISTRY CK MB Index 1.5 0.0 - 2.5 12/25/2012 Normal [facility] CHEMISTRY CK MB 1.2 ng/mL 0.5 - 3.6 12/25/2012 Normal [facility] CHEMISTRY Total CK 79 unit/L 12 - 191 12/25/2012 Normal [facility] CHEMISTRY Troponin-I null 0.00 - 0.40 12/25/2012 Normal [facility] CHEMISTRY Total CK 81 unit/L 12 - 191 12/25/2012 Normal [facility] CHEMISTRY Troponin-I null 0.00 - 0.40 12/25/2012 Normal [facility] CHEMISTRY CK MB 1.5 ng/mL 0.5 - 3.6 12/25/2012 Normal [facility] CHEMISTRY CK MB Index 1.9 0.0 - 2.5 12/25/2012 Normal [facility] HEMATOLOGY MCH 32.3 pg 27.0 - 31.0 12/25/2012 HI [facility] HEMATOLOGY MCV 98.0 fL 80.0 - 94.0 12/25/2012 [facility] HEMATOLOGY RBC 4.76 M/CMM 4.70 - 6.10 12/25/2012 Normal [facility] HEMATOLOGY Hgb 15.4 g/dL 14.0 - 18.0 12/25/2012 Normal [facility] HEMATOLOGY Hct 46.7 % 42.0 - 54.0 12/25/2012 Normal [facility] HEMATOLOGY Platelet 121 K/CMM 133 - 450 12/25/2012 LOW [facility] HEMATOLOGY WBC 9.4 K/CMM 3.7 - 10.4 12/25/2012 Normal [facility] HEMATOLOGY MPV 9.2 fL 7.4 - 10.4 12/25/2012 Normal [facility] HEMATOLOGY MCHC 33.0 g/dL 32.0 - 36.0 12/25/2012 Normal [facility] HEMATOLOGY RDW 14.2 % 11.5 - 14.5 12/25/2012 Normal [facility] HEMATOLOGY Basophils # 0.1 K/CMM 0.0 - 0.2 12/25/2012 Normal [facility] HEMATOLOGY Monocytes # 0.7 K/CMM 0.0 - 0.8 12/25/2012 Normal [facility] HEMATOLOGY Lymphocytes # 2.4 K/CMM 1.0 - 5.5 12/25/2012 Normal [facility] HEMATOLOGY Eosinophils # 0.5 K/CMM 0.0 - 0.5 12/25/2012 Normal [facility] HEMATOLOGY Segs-Bands # 5.7 K/CMM 1.5 - 8.1 12/25/2012 Normal [facility] HEMATOLOGY Basophils 0.7 % 0.0 - 1.0 12/25/2012 Normal [facility] HEMATOLOGY Monocytes 7.9 % 2.0 - 12.0 12/25/2012 Normal [facility] HEMATOLOGY Segs 60.9 % 45.0 - 75.0 12/25/2012 Normal [facility] HEMATOLOGY Eosinophils 5.2 % 0.0 - 4.0 12/25/2012 HI [facility] HEMATOLOGY Lymphocytes 25.3 % 20.0 - 40.0 12/25/2012 Normal [facility] CHEMISTRY Etoh (%) null 12/25/2012 NA 7Interpretive Data: Negative Range: <0.003% Toxic Range: >0.25% [facility] CHEMISTRY Ethanol Lvl null 12/25/2012 NA 8Interpretive Data: Negative Range: <3 mg/dL Toxic Range: >250 mg/dL [facility] CHEMISTRY Troponin-I null 0.00 - 0.40 12/25/2012 Normal [facility] CHEMISTRY Phenytoin Total 5.9 ug/ml 10.0 - 20.0 12/25/2012 LOW [facility] CHEMISTRY CK MB 1.4 ng/mL 0.5 - 3.6 12/25/2012 Normal [facility] CHEMISTRY Total CK 86 unit/L 12 - 191 12/25/2012 Normal [facility] CHEMISTRY BNP 22 pg/mL <=100 12/25/2012 Normal 5Interpretive Data: Elevated results are in line with increasing severity of congestive heart failure. Minor elevations between 100 and 300 may be seen with Myocardial Ischemia, Sodium retaining drugs, and compensated/treated heart failure. [facility] CHEMISTRY eGFR 82 mL/min/1.73m2 12/25/2012 NA 2Result Comment: The eGFR is calculated using [...] from the National Kidney Disease Education Program (NKDEP) which additionally recommends that when the eGFR is used in patients with extremes of body mass index for purposes of drug dosing, the eGFR should be multiplied by the estimated BMI. [facility] CHEMISTRY AGAP 8.6 meq/L 10.0 - 20.0 12/25/2012 LOW [facility] CHEMISTRY AST 15 unit/L 0 - 37 12/25/2012 Normal [facility] CHEMISTRY Globulin 3.9 g/dL 2.0 - 4.0 12/25/2012 Normal [facility] CHEMISTRY A/G Ratio 0.9 0.7 - 1.6 12/25/2012 Normal [facility] CHEMISTRY B/C Ratio 19 6 - 25 12/25/2012 Normal [facility] CHEMISTRY Creatinine Lvl 1.0 mg/dL 0.5 - 1.4 12/25/2012 Normal [facility] CHEMISTRY BUN 19 mg/dL 7 - 22 12/25/2012 Normal [facility] CHEMISTRY Total Protein 7.3 g/dL 6.4 - 8.4 12/25/2012 Normal [facility] CHEMISTRY Albumin Lvl 3.4 g/dL 3.5 - 5.0 12/25/2012 LOW [facility] CHEMISTRY CO2 31 meq/L 24 - 32 12/25/2012 Normal [facility] CHEMISTRY Bili Total 0.3 mg/dL 0.2 - 1.3 12/25/2012 Normal [facility] CHEMISTRY Calcium Lvl 8.7 mg/dL 8.5 - 10.5 12/25/2012 Normal [facility] CHEMISTRY Alk Phos 81 unit/L 39 - 136 12/25/2012 Normal [facility] CHEMISTRY ALT 43 unit/L 0 - 65 12/25/2012 Normal [facility] CHEMISTRY Glucose Lvl 113 mg/dL 70 - 99 12/25/2012 HI 4Interpretive Data: Adult reference range values reflect the clinical guidelines of the [place] [employer]. [facility] CHEMISTRY Potassium Lvl 3.6 meq/L 3.5 - 5.1 12/25/2012 Normal [facility] CHEMISTRY Chloride Lvl 104 meq/L 95 - 109 12/25/2012 Normal [facility] CHEMISTRY Sodium Lvl 140 meq/L 135 - 145 12/25/2012 Normal [facility] CHEMISTRY CK MB Index 1.6 0.0 - 2.5 12/25/2012 Normal [facility] HEMATOLOGY INR 0.93 0.85 - 1.17 12/25/2012 Normal 10Interpretive Data: RECOMMENDED RANGES FOR PROTIME INR: 2.0-3.0 for most medical and surgical thromboembolic states. 2.5-3.5 for artificial heart valves and recurrent embolism. INR SHOULD BE USED ONLY FOR PATIENTS ON STABLE ANTICOAGULANT THERAPY. [facility] HEMATOLOGY PT 12.7 s 12.0 - 14.7 12/25/2012 Normal [facility] HEMATOLOGY WBC 10.6 K/CMM 3.7 - 10.4 12/25/2012 HI [facility] HEMATOLOGY Hgb 15.3 g/dL 14.0 - 18.0 12/25/2012 Normal [facility] HEMATOLOGY MCV 96.9 fL 80.0 - 94.0 12/25/2012 [facility] HEMATOLOGY Hct 46.2 % 42.0 - 54.0 12/25/2012 Normal [facility] HEMATOLOGY RBC 4.76 M/CMM 4.70 - 6.10 12/25/2012 Normal [facility] HEMATOLOGY Platelet 135 K/CMM 133 - 450 12/25/2012 Normal [facility] HEMATOLOGY MCHC 33.1 g/dL 32.0 - 36.0 12/25/2012 Normal [facility] HEMATOLOGY MCH 32.1 pg 27.0 - 31.0 12/25/2012 [facility] HEMATOLOGY RDW 14.4 % 11.5 - 14.5 12/25/2012 Normal [facility] HEMATOLOGY MPV 9.6 fL 7.4 - 10.4 12/25/2012 Normal [facility] HEMATOLOGY PTT 26.8 s 22.9 - 35.8 12/25/2012 Normal 12Interpretive Data: Heparin Therapeutic Range: 57 - 92 Seconds [facility] HEMATOLOGY Segs 65.7 % 45.0 - 75.0 12/25/2012 Normal [facility] HEMATOLOGY Monocytes 8.1 % 2.0 - 12.0 12/25/2012 Normal [facility] HEMATOLOGY Lymphocytes 21.7 % 20.0 - 40.0 12/25/2012 Normal [facility] HEMATOLOGY Lymphocytes # 2.3 K/CMM 1.0 - 5.5 12/25/2012 Normal [facility] HEMATOLOGY Segs-Bands # 7.0 K/CMM 1.5 - 8.1 12/25/2012 Normal [facility] HEMATOLOGY Monocytes # 0.9 K/CMM 0.0 - 0.8 12/25/2012 [facility] HEMATOLOGY Basophils 0.3 % 0.0 - 1.0 12/25/2012 Normal [facility] HEMATOLOGY Eosinophils 4.2 % 0.0 - 4.0 12/25/2012 [facility] HEMATOLOGY Basophils # 0.0 K/CMM 0.0 - 0.2 12/25/2012 Normal [facility] HEMATOLOGY Eosinophils # 0.4 K/CMM 0.0 - 0.5 12/25/2012 Normal [facility] CHEMISTRY UDS Note See Note 6 (12/25/2012 01:10:00) 12/25/2012 Normal 6Interpretive Data: Drugs reported as positive have [...] Methadone 300 ng/mL Urine alcohol 20 mg/dL [facility] U Phencyc Scr Negative *NA* (12/25/2012 01:10:00) Negative 12/25/2012 [facility] U Opiate Scr Negative *NA* (12/25/2012 01:10:00) Negative 12/25/2012 [facility] U Cannab Scr Negative *NA* (12/25/2012 01:10:00) Negative 12/25/2012 [facility] U Cocaine Scr Negative *NA* (12/25/2012 01:10:00) Negative 12/25/2012 [facility] U Benzodia Scr Negative *NA* (12/25/2012 01:10:00) Negative 12/25/2012 [facility] U Amph Scr Negative *NA* (12/25/2012 01:10:00) Negative 12/25/2012 [facility] U Caitlyn Scr Positive *ABN* (12/25/2012 01:10:00) Negative 12/25/2012 ABN [facility] URINALYSIS UA Urobilinogen <=1.0 mg/dL
*NA*
(12/25/2012 01:10:00) <sup> </sup> 0.1 - 1.0 12/25/2012 [facility] URINALYSIS UA Hyal Cast 1 /LPF 0 - 2 12/25/2012 Normal [facility] URINALYSIS UA Mucus Many /LPF *ABN* (12/25/2012 01:10:00) None Seen 12/25/2012 ABN [facility] URINALYSIS UA WBC 3 /HPF 0 - 5 12/25/2012 Normal [facility] URINALYSIS UA Sq Epi Occasional /LPF *NA* (12/25/2012 01:10:00) Few 12/25/2012 NA [facility] URINALYSIS UA RBC 2 /HPF 0 - 2 12/25/2012 Normal [facility] URINALYSIS UA Protein 30 mg/dL *ABN* (12/25/2012 01:10:00) Negative 12/25/2012 ABN [facility] URINALYSIS UA pH 5.0 5.0 - 8.0 12/25/2012 Normal [facility] URINALYSIS UA Spec Grav 1.025 <=1.030 12/25/2012 Normal [facility] URINALYSIS UA Turbidity Clear (12/25/2012 01:10:00) Clear 12/25/2012 Normal [facility] URINALYSIS UA Color Yellow *NA* (12/25/2012 01:10:00) Yellow 12/25/2012 NA [facility] URINALYSIS UA Nitrite Negative (12/25/2012 01:10:00) Negative 12/25/2012 Normal [facility] URINALYSIS UA Leuk Est Negative (12/25/2012 01:10:00) Negative 12/25/2012 Normal [facility] URINALYSIS UA Ketones Negative mg/dL *NA* (12/25/2012 01:10:00) Negative 12/25/2012 [facility] URINALYSIS UA Glucose Negative mg/dL *NA* (12/25/2012 01:10:00) Negative 12/25/2012 [facility] URINALYSIS UA Blood Negative (12/25/2012 01:10:00) Negative 12/25/2012 Normal [facility] URINALYSIS UA Bili Negative *NA* (12/25/2012 01:10:00) Negative 12/25/2012 [facility] Chest 1view Chest 1view CHEST RADIOGRAPH SINGLE VIEW INDICATION: Chest pain COMPARISON: Chest radiograph 10/26/2010 IMPRESSION: 1. There are postsurgical changes of the cardiomediastinal silhouette and sternum. 2. The cardiac silhouette appears enlarged, without radiographic evidence of overt failure. SL: 15 12/25/2012 - - Read by: Tyrese Julio Dictated Date/time: 12/25/12 02:14 Electronically Signed by: Tyrese Julio MD 12/25/12 02:14 FINAL REPORT [facility] Vital Signs Vital Sign Value Date Comments Source Systolic (mm Hg) 126 05/08/2017 [facility] Diastolic (mm Hg) 75 05/08/2017 [facility] Heart Rate 65 05/08/2017 [facility] Temperature Oral (F) 98.2 F 05/08/2017 [facility] Respitory Rate 16 05/08/2017 [facility] Height 182.88 cm 05/07/2017 [facility] Weight 136.364 05/07/2017 [facility] Temperature Oral (F) 98.2 F 05/07/2017 [facility] BMI Calculated 40.77 05/07/2017 [facility] Heart Rate 67 05/07/2017 [facility] Systolic (mm Hg) 137 05/07/2017 [facility] Diastolic (mm Hg) 74 05/07/2017 [facility] Respitory Rate 16 05/07/2017 [facility] Temperature Oral (F) 98.3 F 12/26/2012 [facility] Diastolic (mm Hg) 74 12/26/2012 [facility] Heart Rate 67 12/26/2012 [facility] Systolic (mm Hg) 128 12/26/2012 [facility] Respitory Rate 17 12/26/2012 [facility] Diastolic (mm Hg) 84 12/26/2012 [facility] Systolic (mm Hg) 126 12/26/2012 [facility] Respitory Rate 18 12/26/2012 [facility] Heart Rate 66 12/26/2012 [facility] Temperature Oral (F) 98.1 F 12/26/2012 [facility] Diastolic (mm Hg) 73 12/26/2012 [facility] Systolic (mm Hg) 131 12/26/2012 [facility] Respitory Rate 18 12/26/2012 [facility] Heart Rate 68 12/26/2012 [facility] Temperature Oral (F) 99.4 F 12/26/2012 [facility] Weight 155.17 12/25/2012 [facility] Height 182.88 cm 12/25/2012 [facility] Weight 145.455 12/25/2012 [facility] Height 182.88 cm 12/25/2012 [facility] Encounters Location Location Details Encounter Type Encounter Number Reason For Visit Attending Provider ADM Date DC Date Status Source [facility] OU [id number] CHEST PAIN SPENCERMANDY MAC 12/25/2012 12/26/2012 Active [facility] [id number] Cesar Mcmanus 05/07/2017 05/08/2017 [facility] Procedures Procedure Code Date Perfomer Comments Source Assess radiation therapy care [id number] [place] [id number] [facility] Assess radiation therapy care [facility] [id number] [facility]
[2018-09-18] MEDS: CEFTRIAXONE SOD 1 GM/NS 50 ML 100 ML IV ONE (10:10)
[2018-09-18 13:35] VITALS: BP 112/65
--- NOTE | 2018-10-05 06:46 | Operative Report ---
DATE OF PROCEDURE: 09/18/2018 SURGEON: Marcelo West MD PREOPERATIVE DIAGNOSES: 1. Obstructive benign prostatic hypertrophy. 2. Incomplete bladder emptying. POSTOPERATIVE DIAGNOSES: 1. Obstructive benign prostatic hypertrophy. 2. Incomplete bladder emptying. OPERATIONS PERFORMED: 1. Cystourethroscopy with bilateral ureteral catheterization and retrograde pyelography (separate procedure performed for the incomplete bladder emptying). 2. Interpretation of retrograde ureteropyelography. 3. Cystourethroscopy with implantation of four UroLift implants. ANESTHESIA: General. COMPLICATIONS: None. CLINICAL SUMMARY: Bruce Miguel is a 63-year-old man, who underwent brachytherapy as well as external beam radiotherapy for prostate cancer. He has lower tract urinary obstructive symptoms and wants to pursue UroLift implants. He is aware of the risks of bleeding, infection, injury to adjacent structures, and need for additional procedures and elected to proceed. OPERATIVE PROCEDURE IN DETAIL: Informed consent was verified. Bruce Miguel was properly identified, taken to the operating room, placed on the cystoscopy table in supine position. Anesthesia was uneventfully begun. The patient was then carefully and gently repositioned in the dorsal lithotomy position with all pressure points well padded. His genitalia were prepared and draped in usual sterile fashion. The cystoscope sheath with the visual obturator in place was atraumatically inserted into the patient's urethra. It was guided unremarkably into the urethra through the normal sphincteric region and through the prostate bed, which was significant for mostly bilobar prostatic hypertrophy with kissing lateral lobes. There was a very small median lobe that was not ball valving and not intravesical. We went to the patient's bladder and drained it. Panendoscopy revealed trabeculations, but no tumors, no stones, and no diverticula. Normally positioned and configured ureteral orifices were identified. The ureteral catheter was used to cannulate each ureter and retrograde ureteropyelograms were performed. Interpretation of retrograde ureteropyelography: Contrast was instilled in a retrograde fashion bilaterally. There were no tumors, no stones, no diverticula. Unobstructed drainage was observed bilaterally fluoroscopically. Bladder was drained. Cystoscope was withdrawn. The 20-[employer] Lucian cystoscope sheath was inserted with the visual obturator in place. We then placed four UroLift implants. All four were placed anterolaterally, two were placed 1.5 cm distal to the bladder neck and two were placed at the level of the verumontanum. This resulted in an open continuous anterior channel. Hemostasis was good. We entered the patient's bladder, drained it again. We carefully reexamined the implants as we exited and they were in an appropriate position. Belladonna and Opium suppository were placed and the patient was uneventfully reversed from anesthesia and taken to recovery room in stable condition. There were no complications to the procedure. The patient tolerated the procedure well. Estimated blood loss was minimal. Explicit postoperative instructions were given. Hopefully, we will see the patient back and follow up in the office, at which point in time, uroflowmetry and bladder ultrasonography will be performed to evaluate his voiding. Marcelo West MD [place]/MODL /[id number] cc: Kaz Gonzales
== END | disposition home or self-care (01) ==
LOC: OR 09:08
PROVIDERS: ATTEND Urology
DX: N40.1 Benign prostatic hyperplasia with lower urinary tract symptoms (principal); N13.8 Other obstructive and reflux uropathy; R39.14 Feeling of incomplete bladder emptying; N32.89 Other specified disorders of bladder; Z85.46 Personal history of malignant neoplasm of prostate; Z92.3 Personal history of irradiation; I25.709 Atherosclerosis of coronary artery bypass graft(s), unspecified, with unspecified angina pectoris; R00.1 Bradycardia, unspecified; I45.10 Unspecified right bundle-branch block; G40.409 Other generalized epilepsy and epileptic syndromes, not intractable, without status epilepticus; I11.0 Hypertensive heart disease with heart failure; I50.9 Heart failure, unspecified; J44.9 Chronic obstructive pulmonary disease, unspecified; G47.33 Obstructive sleep apnea (adult) (pediatric); I25.2 Old myocardial infarction; E66.01 Morbid (severe) obesity due to excess calories; Z88.6 Allergy status to analgesic agent; Z01.810 Encounter for preprocedural cardiovascular examination; Z01.812 Encounter for preprocedural laboratory examination; Z01.818 Encounter for other preprocedural examination; Z95.1 Presence of aortocoronary bypass graft
CPT/HCPCS: 52005; C9740; 36415; 71046; 74420; 80048; 85025; 93005; J0696; J1100; J1885; J2405; L8699

== ENCOUNTER → 2022-10-01 | Outpatient (CLI) | payer MEDICARE, OTHER ==
[~2022-10-01] MED LIST changes: -AMPICILLIN SOD IV ONE; -BELLADONNA/OPIUM 30 MG SUPP RC ONE; -DEXAMETHASONE SOD PHOS INJ 4 MG/ML VIAL ONE; -FENTANYL CITRATE/PF 100MCG/2 ML INJ ONE; -IOPAMIDOL 610MG/1ML 300 MG/ML VIAL IV ONE; -KETOROLAC TROMETHAMINE 30 MG/ML VIAL ONE; -ONDANSETRON HCL INJ 2MG/ML 2ML 2 MG/ML VIAL ONE; -PROPOFOL IV EMULSION 10 MG/ML 20 ML VIAL ONE; -SEVOFLURANE INHAL SOLN 250 ML PEN BTL ONE; -SODIUM CHLORIDE 0.9% IV ONE
== END ==
LOC: US 09:45
PROVIDERS: ATTEND Urology
DX: D41.01 Neoplasm of uncertain behavior of right kidney (principal)
CPT/HCPCS: 71046; 76770

== ENCOUNTER → 2023-01-07 | Outpatient (CLI) | payer MEDICARE, OTHER | LOC: US 07:55 | PROVIDERS: ATTEND Urology | DX: D41.01 Neoplasm of uncertain behavior of right kidney (principal) | CPT/HCPCS: 71046; 76770 ==

== ENCOUNTER → 2024-05-20 | Outpatient (REF) | payer MEDICARE, OTHER | LOC: US 08:48 | PROVIDERS: ATTEND Urology | DX: C64.9 Malignant neoplasm of unspecified kidney, except renal pelvis (principal) | CPT/HCPCS: 71046; 76770; 76857 ==

== ENCOUNTER → 2024-11-02 | Outpatient (REF) | payer MEDICARE, OTHER | LOC: US 08:28 | PROVIDERS: ATTEND Urology | DX: C64.9 Malignant neoplasm of unspecified kidney, except renal pelvis (principal) | CPT/HCPCS: 71046; 76770; 76857 ==